=== PATIENT | male | born 2000 | race Caucasian/White ===

== ENCOUNTER 2022-07-19 18:03 | Emergency (ER) | payer OTHER, SELFPAY ==
[2022-07-19 18:31] VITALS: BP 152/90; PULSE 78; RESP 17; TEMP 36.9; O2SAT 97; BMI 27.1
--- NOTE | 2022-07-19 19:08 | ED_ITS ---
HPI - Headache General Chief Complaint: Headache Stated Complaint: Migraine for 4 days, sent by [facility], eyesight affecte Time Seen by Provider: 07/19/22 19:08 Source: patient Mode of arrival: Ambulatory Limitations: no limitations History of Present Illness HPI Narrative: 21-year-old male who is here for evaluation of a headache for the past couple days and also blurry vision in his left eye. He states the headache started when he was out drinking for new year's [place]. It has been consistent since then. No fevers. States it does get better when he lays down. At the time of my exam he actually states that his headache is feeling much better and the blurry vision is left eyes much better. He reports no double vision it was just blurry. It does seem to be just the left eye not the right eye. No fevers. No neck pain. No other neurologic symptoms. Related Data Home Medications Medication Instructions Recorded Confirmed No Known Home Medications 07/19/22 07/19/22 Allergies Allergy/AdvReac Type Severity Reaction Status Date / Time No Known Drug Allergies Allergy Verified 07/19/22 18:34 Review of Systems Constitutional Constitutional: Reports system reviewed and no additional complaints, except as documented Eyes Eyes: Reports system reviewed and no additional complaints, except as documented ENT Ears, Nose, Mouth, and Throat: Reports system reviewed and no additional complaints, except as documented Integumentary/Breasts Skin/Breast: Reports system reviewed and no additional complaints, except as documented Neurologic Neurologic: Reports system reviewed and no additional complaints, except as documented Hematologic/Lymphatic On Anticoagulants: No Patient History Social History Smoking Status: Current some day smoker Smoking Status: Current some day smoker tobacco type: cigarettes alcohol intake frequency: a few times a week Substance Use Type: does not use Exam Initial Vital Signs Initial Vital Signs: Vital Signs Temperature 98.5 F 07/19/22 18:31 Pulse Rate 78 07/19/22 18:31 Respiratory Rate 17 07/19/22 18:31 Blood Pressure 152/90 H 07/19/22 18:31 Pulse Oximetry 97 07/19/22 18:31 Oxygen Delivery Method 07/19/22 18:31 Const General: cooperative, comfortable and No ill appearing HENKY Head: normal to inspection Eyes General: Yes appearance normal, both eyes and all related structures Periorbital: periorbital findings normal Pupils: PERRL EOM: EOM intact bilaterally Skin General: no rashes or lesions noted Neuro General: patient alert, patient awake, patient oriented x3 and moves all extremities Cranial Nerves: CN's II-XI intact bilaterally Speech: speech normal Extrem General: normal to inspection and capillary refill normal Course Orders Ordered: Discontinued Medications Sodium Chloride (Normal Saline 0.9%) 1,000 mls @ 1,000 mls/hr IV BOLUS ONE Stop: 07/19/22 20:08 Last Infusion: 07/19/22 21:21 Dose: 0 mls/hr Documented By: Admin: 07/19/22 20:21 Dose: 1,000 mls/hr Documented By: ERNIE Ketorolac Tromethamine (Ketorolac 30 Mg/Ml Vial) 30 mg IV NOW ONE Stop: 07/19/22 19:10 Last Admin: 07/19/22 20:19 Dose: 30 mg Documented By: ERNIE Vital Signs Vital signs: Vital Signs - 8 hr 07/19/22 18:31 07/19/22 21:15 Temperature 98.5 F Pulse Rate 78 84 Respiratory Rate 17 Blood Pressure 152/90 H 132/80 Pulse Oximetry 97 99 Oxygen Delivery Method Room Air Room Air MDM - Headache MDM Narrative Medical decision making narrative: Patient states that his symptoms did improve somewhat with the medication. He is alert oriented x3. GCS of 15. Low suspicion for meningitis. Low suspicion for acute intracranial pathology. Has a normal neurologic exam other than subjective blurring of his left eye. No indication for any radiologic studies. Will discharge patient home with strict return precautions. He expressed understanding and agreement. Discharge Plan Departure Patient Disposition: Home Clinical Impression: Headache Instructions: DI for Headache Activity Restrictions/Additional Instructions: Be sure you are staying hydrated. He can take Tylenol and/or ibuprofen for any continued headaches. Return to the emergency department for any or worsening symptoms. Prescriptions: No Action No Known Home Medications Stand Alone Forms: Patient Portal/API
[2022-07-19] MEDS: KETOROLAC 30 MG/ML VIAL IV (20:19)
[2022-07-19] MEDS: SODIUM CHLORIDE 0.9% 1,000 ML 1000 ML IV (20:21)
[2022-07-19 21:15] VITALS: BP 132/80; PULSE 84; O2SAT 99
== END 2022-07-19 21:23 | disposition home or self-care (01) ==
PROVIDERS: Emergency Provider Emergency Medicine
DX: R51.9 Headache, unspecified (principal); H53.8 Other visual disturbances
CPT/HCPCS: 36415; 96361; 96374; 99284; J1885